=== PATIENT | female | born 1945 | race Caucasian/White ===

== ENCOUNTER → 2019-10-13 11:00 | Outpatient (BNVA) | payer MEDICARE, SELFPAY | PROVIDERS: Family Provider Family Medicine; PCP Family Medicine; Visit Provider Family Medicine | DX: I50.9 Heart failure, unspecified (principal); N18.1 Chronic kidney disease, stage 1 | CPT/HCPCS: 80053 ==

== ENCOUNTER → 2021-02-24 15:19 | Outpatient (BNVA) | payer MEDICARE, SELFPAY | PROVIDERS: Family Provider Family Medicine; PCP Family Medicine; Visit Provider Family Medicine | DX: E11.9 Type 2 diabetes mellitus without complications (principal); N30.90 Cystitis, unspecified without hematuria | CPT/HCPCS: 82043; 87086 ==

== ENCOUNTER → 2021-03-29 10:27 | Outpatient (BNVA) | payer MEDICARE, SELFPAY | PROVIDERS: Family Provider Family Medicine; PCP Family Medicine; Visit Provider Nurse Practitioner Family | DX: N39.0 Urinary tract infection, site not specified (principal); E11.22 Type 2 diabetes mellitus with diabetic chronic kidney disease; D63.1 Anemia in chronic kidney disease; I50.31 Acute diastolic (congestive) heart failure | CPT/HCPCS: 81003; 87077; 87086; 87184 ==

== ENCOUNTER → 2021-04-13 15:27 | Outpatient (BNVA) | payer MEDICARE, SELFPAY | PROVIDERS: Family Provider Family Medicine; PCP Family Medicine; Visit Provider Dermatology | DX: N18.32 Chronic kidney disease, stage 3b (principal) | CPT/HCPCS: 82043 ==

== ENCOUNTER → 2021-11-14 09:16 | Outpatient (BNVA) | payer MEDICARE, SELFPAY | PROVIDERS: Family Provider Family Medicine; PCP Family Medicine; Visit Provider Nurse Practitioner Family | DX: R45.1 Restlessness and agitation (principal); R41.0 Disorientation, unspecified | CPT/HCPCS: 81003; 87077; 87086; 87184 ==

== ENCOUNTER → 2021-11-16 08:55 | Outpatient (BNVA) | payer MEDICARE, SELFPAY | PROVIDERS: Family Provider Family Medicine; PCP Family Medicine; Visit Provider Nurse Practitioner Family | DX: R09.02 Hypoxemia (principal); R50.9 Fever, unspecified; I50.30 Unspecified diastolic (congestive) heart failure; I10 Essential (primary) hypertension; N17.9 Acute kidney failure, unspecified | CPT/HCPCS: 80053; 85025 ==

== ENCOUNTER → 2022-01-01 09:57 | Outpatient (BNVA) | payer MEDICARE, SELFPAY | PROVIDERS: Family Provider Family Medicine; PCP Family Medicine; Visit Provider Nurse Practitioner Family | DX: R41.82 Altered mental status, unspecified (principal) | CPT/HCPCS: 81000; 81003; 87077; 87086; 87184 ==

== ENCOUNTER → 2022-01-25 08:58 | Outpatient (BNVA) | payer MEDICARE, SELFPAY | PROVIDERS: Family Provider Family Medicine; PCP Family Medicine; Visit Provider Family Medicine | DX: R80.9 Proteinuria, unspecified (principal) | CPT/HCPCS: 82043 ==

== ENCOUNTER → 2022-02-13 10:40 | Day surgery (SDC) | payer MEDICARE, MEDICAID, SELFPAY ==
[2022-02-13 10:35] VITALS: BP 200/81; PULSE 73; RESP 18; TEMP 36.5; O2SAT 97
[2022-02-13] MEDS: SODIUM CHLORIDE 0.9% IV (11:02)
[2022-02-13] MEDS: FERUMOXYTOL IV (11:02)
[2022-02-13 11:10] VITALS: BP 200/81; PULSE 73; RESP 18; TEMP 36.5; O2SAT 97
== END ==
PROVIDERS: PCP Family Medicine; Visit Provider Registered Nurse
DX: D50.8 Other iron deficiency anemias (principal)
CPT/HCPCS: 96365; Q0139

== ENCOUNTER → 2022-04-06 08:46 | Outpatient (BNVA) | payer MEDICARE, SELFPAY | PROVIDERS: PCP Family Medicine; Visit Provider Family Medicine | DX: I10 Essential (primary) hypertension (principal); N18.9 Chronic kidney disease, unspecified; E03.9 Hypothyroidism, unspecified; Z79.899 Other long term (current) drug therapy | CPT/HCPCS: 80053; 80069; 82043; 82306; 82310; 83970; 85025 ==

== ENCOUNTER → 2022-06-05 10:48 | Outpatient (BNVA) | payer MEDICARE, SELFPAY | PROVIDERS: PCP Family Medicine; Visit Provider Nurse Practitioner Family | DX: R41.82 Altered mental status, unspecified (principal); N30.01 Acute cystitis with hematuria | CPT/HCPCS: 81003; 87077; 87086; 87184 ==